=== PATIENT | male | born 1960 | race Caucasian/White ===

== ENCOUNTER → 2016-07-06 | Outpatient (CLI) | payer OTHER ==
[~2016-07-06] MED LIST: OMNIPAQUE 350 MG/ML, 50 ML BOTTLE ONE
== END | disposition home or self-care (01) ==
LOC: RAD 14:11
PROVIDERS: ATTEND Specialist
DX: G45.8 Other transient cerebral ischemic attacks and related syndromes (principal); R41.3 Other amnesia
CPT/HCPCS: 0042T; Q9967